=== PATIENT | female | born 1945 | race Caucasian/White ===

== ENCOUNTER → 2016-04-09 | Outpatient (CLI) | payer MEDICARE, OTHER | END | disposition home or self-care (01) | LOC: PCVCIMAG 13:55 | PROVIDERS: ATTEND Nuclear Medicine Nuclear Cardiology | DX: I70.1 Atherosclerosis of renal artery (principal); I10 Essential (primary) hypertension; E78.00 Pure hypercholesterolemia, unspecified; I26.99 Other pulmonary embolism without acute cor pulmonale; I82.409 Acute embolism and thrombosis of unspecified deep veins of unspecified lower extremity | CPT/HCPCS: 76770; 93975; G0463 ==

== ENCOUNTER → 2016-04-17 | Outpatient (CLI) | payer MEDICARE, OTHER ==
[~2016-04-17] MED LIST: DIAZEPAM 10 MG TABLET ONE; FENTANYL PF 100 MCG/2 ML VIAL. ONE; IOHEXOL 300 MG/ML 50 ML VIAL. ONE; IV NORMAL SALINE 1000ML BAG 1,000 ML ONE; LIDOCAINE 1% Multi-Dose 20 ML VIAL. ONE; MIDAZOLAM HCL 2 MG/2 ML VIAL. ONE
== END | disposition home or self-care (01) ==
LOC: PCVCINTER 07:40
PROVIDERS: ATTEND Nuclear Medicine Nuclear Cardiology
DX: Z46.89 Encounter for fitting and adjustment of other specified devices (principal); I70.1 Atherosclerosis of renal artery; I10 Essential (primary) hypertension; E78.00 Pure hypercholesterolemia, unspecified; I26.99 Other pulmonary embolism without acute cor pulmonale; I82.409 Acute embolism and thrombosis of unspecified deep veins of unspecified lower extremity
CPT/HCPCS: 37193; 76937; C1751; C1769; C1773; C1894; J2250; J3010; J7030; Q9967

== ENCOUNTER → 2016-06-13 | Outpatient (CLI) | payer MEDICARE, OTHER | END | disposition home or self-care (01) | LOC: PCVCCLINIC 09:47 | PROVIDERS: ATTEND Internal Medicine Cardiovascular Disease | DX: I77.9 Disorder of arteries and arterioles, unspecified (principal); I10 Essential (primary) hypertension; I70.1 Atherosclerosis of renal artery; I26.99 Other pulmonary embolism without acute cor pulmonale; I82.409 Acute embolism and thrombosis of unspecified deep veins of unspecified lower extremity; R07.9 Chest pain, unspecified | CPT/HCPCS: 93005; G0463 ==

== ENCOUNTER → 2016-06-13 | Outpatient (CLI) | payer MEDICARE, OTHER | END | disposition home or self-care (01) | LOC: PCVCCLINIC 09:36 | PROVIDERS: ATTEND Internal Medicine Cardiovascular Disease | DX: I77.9 Disorder of arteries and arterioles, unspecified (principal); I82.409 Acute embolism and thrombosis of unspecified deep veins of unspecified lower extremity; I26.99 Other pulmonary embolism without acute cor pulmonale; E78.00 Pure hypercholesterolemia, unspecified; R07.9 Chest pain, unspecified; I70.1 Atherosclerosis of renal artery; I10 Essential (primary) hypertension | CPT/HCPCS: 93005; G0463 ==

== ENCOUNTER → 2017-01-09 | Outpatient (CLI) | payer MEDICARE, OTHER ==
--- NOTE | 2017-01-09 11:31 | PCVCIMAG ---
EXAM: BILATERAL RENAL ULTRASOUND AND BILATERAL RENAL DUPLEX INDICATION: Hypertension FINDINGS: Right kidney: Length measures 11.2 cm. No hydronephrosis or extensive renal scarring. Right renal duplex: Adequate technical quality. No sonographic evidence of renal artery stenosis. The aortic to renal artery ratio is 2.6. The renal vein is patent. Incidental note is made of 3.1 x 4.0 x 4.5 cm benign cyst mid/upper kidney. Left kidney: Length measures 11.5 cm. No hydronephrosis or extensive renal scarring. Left renal duplex: Adequate technical quality. 80% restenosis proximal/mid renal artery. The aortic to renal artery ratio is 4.4. The renal vein is patent. Bladder: No obvious abnormalities. IMPRESSION: Previous right renal artery stent maintaining adequate patency. Interval development of 80% restenosis at the distal margin of the previous left renal artery stent. LOC:[id number]
== END | disposition home or self-care (01) ==
LOC: PCVCIMAG 09:46
PROVIDERS: ATTEND Internal Medicine Cardiovascular Disease
DX: I25.10 Atherosclerotic heart disease of native coronary artery without angina pectoris (principal); I10 Essential (primary) hypertension; I70.1 Atherosclerosis of renal artery; I82.402 Acute embolism and thrombosis of unspecified deep veins of left lower extremity; I26.99 Other pulmonary embolism without acute cor pulmonale; M48.061 Spinal stenosis, lumbar region without neurogenic claudication; E78.00 Pure hypercholesterolemia, unspecified; R00.1 Bradycardia, unspecified; F17.200 Nicotine dependence, unspecified, uncomplicated
CPT/HCPCS: 36415; 76770; 80061; 93005; 93975; G0463

== ENCOUNTER → 2017-07-14 | Outpatient (CLI) | payer MEDICARE, OTHER | END | disposition home or self-care (01) | LOC: PCVCIMAG 10:55 | DX: I10 Essential (primary) hypertension (principal); I70.1 Atherosclerosis of renal artery; E78.00 Pure hypercholesterolemia, unspecified; F17.210 Nicotine dependence, cigarettes, uncomplicated; Z86.711 Personal history of pulmonary embolism; Z79.899 Other long term (current) drug therapy | CPT/HCPCS: 36415; 76770; 93975; G0463 ==

== ENCOUNTER → 2017-07-21 | Outpatient (CLI) | payer MEDICARE, OTHER ==
[~2017-07-21] MED LIST changes: +CLOPIDOGREL BISULFATE 75 MG TABLET; -DIAZEPAM 10 MG TABLET ONE; +DIAZEPAM 10 MG TABLET.; +EPINEPHrine 1 MG/ML VIAL; -FENTANYL PF 100 MCG/2 ML VIAL. ONE; +HEPARIN SODIUM 5,000 UNIT/ML VIAL for PCVC.; +IOHEXOL 300 MG/ML 100ML VIAL.; -IOHEXOL 300 MG/ML 50 ML VIAL. ONE; -IV NORMAL SALINE 1000ML BAG 1,000 ML ONE; +IV NORMAL SALINE 500ML BAG 500 ML; -LIDOCAINE 1% Multi-Dose 20 ML VIAL. ONE; +LIDOCAINE 1% Multi-Dose 50 ML VIAL.; -MIDAZOLAM HCL 2 MG/2 ML VIAL. ONE; +MIDAZOLAM HCL/PF 2 MG/2 ML VIAL.; +WATER FOR INJECTION,STERILE 20 ML VIAL. IJ; +ceFAZolin SODIUM 1 GM VIAL; +fentaNYL PF VIAL 100 MCG/2 ML VIAL; +hydrALAZINE 20 MG/ML VIAL.
== END | disposition home or self-care (01) ==
LOC: PCVCINTER 07:44
DX: I70.1 Atherosclerosis of renal artery (principal); I70.0 Atherosclerosis of aorta; I70.293 Other atherosclerosis of native arteries of extremities, bilateral legs; I10 Essential (primary) hypertension
CPT/HCPCS: 36252; 37236; 37237; 75630; 75716; 76937; 99152; 99153; C1713; C1725; C1751; C1769; C1874; C1894; J0171; J0360; J0690; J1644; J2250; J3010; J7040; Q9967

== ENCOUNTER → 2017-11-26 | Outpatient (CLI) | payer MEDICARE, OTHER ==
--- NOTE | 2017-11-26 10:53 | PCVCIMAG ---
EXAM: BILATERAL RENAL ULTRASOUND AND BILATERAL RENAL DUPLEX INDICATION: Hypertension. Previous left renal stent graft placement for in-stent restenosis January 2017. FINDINGS: Right kidney: Length measures 11.7 cm. No hydronephrosis or extensive renal scarring. Incidental note is made of 4.1 x 4.2 x 4.5 cm benign cyst midpole. Right renal duplex: Adequate technical quality. Mild in-stent restenosis proximal vessel. The aortic to renal artery ratio is 3.3. The renal vein is patent. Left kidney: Length measures 10.4 cm. No hydronephrosis or extensive renal scarring. Left renal duplex: It is difficult to visualize the left renal artery beyond its origin. Also poor intrarenal cortical waveforms are seen raising concern for high-grade stenosis or occlusion. The renal vein is patent. Bladder: No obvious abnormalities. IMPRESSION: Left renal artery is not well seen with blunted arterial waveforms within the kidney raising concern for high-grade restenosis or occlusion. Mild in-stent restenosis right renal artery. LOC:[id number]
--- NOTE | 2017-11-26 12:29 | PCVCIMAG ---
EXAM: BILATERAL CAROTID DUPLEX INDICATION: Carotid Occlusive Disease. Previous left carotid endarterectomy. FINDINGS: Doppler Measurements (centimeters per second): RIGHT: Peak CCA-57, Peak ECA-129, Diastolic ICA-33, Peak ICA-127, ICA/CCA Ratio-2.2. LEFT: Peak CCA-59, Peak ECA-76, Diastolic ICA-31, Peak ICA-100, ICA/CCA Ratio-1.7. RIGHT CAROTID: The carotid bulb has moderate plaque. The proximal internal carotid artery shows 40-50% stenosis. The common carotid artery shows no significant stenosis. The external carotid artery shows 40% stenosis. LEFT CAROTID: The carotid bulb has no significant plaque. The proximal internal carotid artery shows no significant stenosis. The common carotid artery shows no significant stenosis. The external carotid artery shows no significant stenosis. Antegrade flow in both vertebral arteries. IMPRESSION: 40-50% stenosis of the right internal carotid artery with moderate plaque. No significant stenosis of the left internal carotid artery with no significant plaque. LOC:[id number]
== END | disposition home or self-care (01) ==
LOC: PCVCIMAG 09:10
PROVIDERS: ATTEND Internal Medicine Cardiovascular Disease
DX: M48.061 Spinal stenosis, lumbar region without neurogenic claudication (principal); I70.1 Atherosclerosis of renal artery; I10 Essential (primary) hypertension; I65.21 Occlusion and stenosis of right carotid artery; E78.00 Pure hypercholesterolemia, unspecified; R53.1 Weakness; R60.0 Localized edema; F17.200 Nicotine dependence, unspecified, uncomplicated; W19.XXXA Unspecified fall, initial encounter; Y93.89 Activity, other specified; Y92.89 Other specified places as the place of occurrence of the external cause; Y99.8 Other external cause status; Z79.899 Other long term (current) drug therapy
CPT/HCPCS: 76770; 80061; 93005; 93880; 93975; G0463

== ENCOUNTER → 2017-12-02 | Outpatient (CLI) | payer MEDICARE, OTHER ==
[~2017-12-02] MED LIST changes: -CLOPIDOGREL BISULFATE 75 MG TABLET; -DIAZEPAM 10 MG TABLET.; +DIAZEPAM 10 MG TABLET. ONE; -EPINEPHrine 1 MG/ML VIAL; -HEPARIN SODIUM 5,000 UNIT/ML VIAL for PCVC.; +HEPARIN SODIUM 5,000 UNIT/ML VIAL for PCVC. ONE; +IODIXANOL 270 MG/ML 100 ML VIAL. ONE; -IOHEXOL 300 MG/ML 100ML VIAL.; +IV NORMAL SALINE 1000ML BAG 1,000 ML ONE; -IV NORMAL SALINE 500ML BAG 500 ML; -LIDOCAINE 1% Multi-Dose 50 ML VIAL.; +LIDOCAINE 1%/EPI 1:100,000 20 ML VIAL. ONE; -MIDAZOLAM HCL/PF 2 MG/2 ML VIAL.; +MIDAZOLAM HCL/PF 2 MG/2 ML VIAL. ONE; -WATER FOR INJECTION,STERILE 20 ML VIAL. IJ; +WATER FOR INJECTION,STERILE 20 ML VIAL. IJ ONE; -ceFAZolin SODIUM 1 GM VIAL; +ceFAZolin SODIUM 1 GM VIAL ONE; -fentaNYL PF VIAL 100 MCG/2 ML VIAL; +fentaNYL PF VIAL 100 MCG/2 ML VIAL ONE; -hydrALAZINE 20 MG/ML VIAL.
--- NOTE | 2017-12-02 13:05 | PCVCINTER ---
EXAM: 1. AORTOGRAM AND BILATERAL ILIOFEMORAL ANGIOGRAPHY 2. BILATERAL RENAL ANGIOGRAPHY 3. LEFT RENAL ARTERY ANGIOPLASTY. INDICATION: Peripheral arterial disease. Coronary artery disease. Recent renal duplex suggesting left renal stenosis or occlusion. Hypertension. Renal atherosclerosis. No prior catheter based angiographic study is available. A full diagnostic angiogram study is performed today and the decision to intervene is based on this diagnostic study. PROCEDURE: Procedure and risks of angiography intervention is appropriate including limb loss stroke and were discussed with the patient's family and consent obtained. The patient's right groin was prepped in the normal sterile fashion. IV conscious sedation was used throughout procedure with appropriate monitoring from 11:00 AM through 12:00 PM. Ultrasound was used to interrogate the right groin and showed the right common femoral artery to be patent. A permanent spot film was obtained. Under ultrasound guidance access into the right common femoral artery was obtained and a 5 Albanian sheath was placed. Through this a 5 Albanian flush catheter was placed into the abdominal aorta at the level of the renal arteries and AP aortogram was performed. Catheter was positioned at the aortic bifurcation and bilateral iliofemoral angiography performed. Catheter was exchanged for a visceral catheter was placed into the right renal arteries and right renal angiograms obtained. Catheter was placed into the the left renal arteries and left renal angiograms were obtained. Patient was given 4000 units of heparin. Angioplasty of the left renal artery was carried out with a 5 x 2 Cordis saber BAL[employer]GE INSPECTOR catheter. Follow-up angiogram was performed. Catheters and wires removed. Sheath was removed and hemostasis obtained using the FISH device. No immediate complications. FINDINGS: Aortogram: There is one right and one left renal artery. Moderate plaque infrarenal abdominal aorta without significant stenosis. Bilateral iliofemoral angiography: Moderate plaque in the right left common iliac arteries without significant stenosis. Both internal iliac arteries are patent. The right left external iliac arteries are patent. The right and left common femoral and profunda femoral arteries are patent as are the visualized portions of the upper superficial femoral arteries. Right renal artery: Previous stent graft proximal vessel maintaining good patency. No branch vessel stenosis. Left renal artery: Since previous angiogram from July 2017 complete occlusion of the prior stent graft in the proximal vessel has developed. No collateral filling of the distal main renal artery or intrarenal branches are seen. Angioplasty was accomplished throughout the length of the left main renal artery but despite this good patency could not be restored. IMPRESSION: Previous stent graft proximal right renal artery remains widely patent. No evidence of right renal artery stenosis. Interval occlusion of the stent graft proximal left renal artery. Despite recanalization and angioplasty patency to the left renal artery could not be restored. LOC:[id number]
== END | disposition home or self-care (01) ==
LOC: PCVCINTER 12:53
PROVIDERS: ATTEND Internal Medicine Cardiovascular Disease
DX: I70.1 Atherosclerosis of renal artery (principal); I10 Essential (primary) hypertension; I25.10 Atherosclerotic heart disease of native coronary artery without angina pectoris; I70.0 Atherosclerosis of aorta; I70.293 Other atherosclerosis of native arteries of extremities, bilateral legs; Z85.038 Personal history of other malignant neoplasm of large intestine; Z86.718 Personal history of other venous thrombosis and embolism; Z86.711 Personal history of pulmonary embolism; E78.00 Pure hypercholesterolemia, unspecified; Z86.73 Personal history of transient ischemic attack (TIA), and cerebral infarction without residual deficits; Z90.49 Acquired absence of other specified parts of digestive tract; Z98.890 Other specified postprocedural states; Z98.51 Tubal ligation status; Z82.49 Family history of ischemic heart disease and other diseases of the circulatory system; Z83.3 Family history of diabetes mellitus; F17.210 Nicotine dependence, cigarettes, uncomplicated; Z79.899 Other long term (current) drug therapy
CPT/HCPCS: 36252; 37246; 76937; 99152; 99153; C1725; C1751; C1757; C1760; C1769; C1887; C1894; J0690; J1644; J2250; J3010; J3490; J7030; Q9966

== ENCOUNTER → 2018-07-24 | Outpatient (CLI) | payer MEDICARE, OTHER | END | disposition home or self-care (01) | LOC: PCVCCLINIC 11:30 | PROVIDERS: ATTEND Internal Medicine Cardiovascular Disease | DX: I10 Essential (primary) hypertension (principal); I67.83 Posterior reversible encephalopathy syndrome; I65.29 Occlusion and stenosis of unspecified carotid artery; I70.1 Atherosclerosis of renal artery; E78.5 Hyperlipidemia, unspecified; Z86.718 Personal history of other venous thrombosis and embolism; Z86.711 Personal history of pulmonary embolism; R09.89 Other specified symptoms and signs involving the circulatory and respiratory systems; Z87.891 Personal history of nicotine dependence | CPT/HCPCS: 36415; 80061; 93005; G0463 ==